=== PATIENT | female | born 1960 | race Caucasian/White ===

== ENCOUNTER → 2024-10-20 12:44 | Outpatient (REF) | payer BC, SELFPAY | LOC: WDC 12:44 | PROVIDERS: ATTENDING PHYSICIAN Obstetrics & Gynecology; FAMILY PHYSICIAN Internal Medicine | DX: Z12.31 Encounter for screening mammogram for malignant neoplasm of breast (principal) | CPT/HCPCS: 77063; 77067 ==

== ENCOUNTER → 2025-11-02 12:57 | Outpatient (REF) | payer BC, SELFPAY | LOC: WDC 12:57 | PROVIDERS: ATTENDING PHYSICIAN Obstetrics & Gynecology; FAMILY PHYSICIAN Internal Medicine | DX: Z12.31 Encounter for screening mammogram for malignant neoplasm of breast (principal) | CPT/HCPCS: 77063; 77067 ==